=== PATIENT | male | born 1995 | race Caucasian/White ===

== ENCOUNTER 2019-04-12 17:51 | Emergency (ER) | payer SELFPAY ==
[2019-04-12 18:02] VITALS: BP 145/79; PULSE 98; TEMP 98.8; BMI 22.8
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
[2019-04-12] MEDS ORDERED: ACETAMINOPHEN 325 MG TABLET (FP) PO ONE (18:22)
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
[2019-04-12] MEDS ORDERED: ACETAMINOPHEN 325 MG TABLET (FP) ONE (18:40)
== END 2019-04-12 23:02 | disposition home or self-care (01) ==
LOC: JERFT 17:51
DX: S09.90XA Unspecified injury of head, initial encounter (principal); S00.83XA Contusion of other part of head, initial encounter; Y04.8XXA Assault by other bodily force, initial encounter; Y93.89 Activity, other specified; Y92.89 Other specified places as the place of occurrence of the external cause
CPT/HCPCS: 70450-TC; 70486-TC; 99281-25